=== PATIENT | female | born 1985 | race Caucasian/White ===

== ENCOUNTER 2016-08-16 16:59 | Emergency (ER) | payer OTHER ==
--- NOTE | ~2016-08-16 | CR132 ---
[facility] A Service of [facility] & [facility] RADIOLOGY TEXT RESULTS PATIENT: VICKEY NICOLE LOCATION: CFTX : 89 UNIT #: [id number] AGE: [address]: Olivia Huynh APRN SEX: F ORDER DR: [id number] [facility] [address] [facility]. [place], [place] [address] [id number] E MR#: [id number] Acc #: [id number] NAME: VICKEY NICOLE : 1985 SEX: F STUDY DATE/TIME: 08/16/2016 19:29 UNIT: [facility] ROOM: STUDY DESCRIPTION: CR Forearm 2 View Lt Attending Physician: Olivia Huynh A.P.R.N. Ordering Physician: Olivia Huynh A.P.R.N. Primary Care Physician: No Primary Care Physician MEDICAL IMAGING REPORT This report is preliminary unless electronic signature is present EXAM Left forearm, 2 views. HISTORY Arm pain today. No reported injury. FINDINGS 2 views of the left forearm demonstrate oblique fracture through the mid shaft of the ulna with 3 mm separation of the fracture fragments. No fracture angulation. Mild soft tissue swelling along the posterior margin of the mid forearm. Remainder of the forearm is negative. No additional fracture. Dictated by... Nilesh Serrano M.D. THIS IS AN ELECTRONICALLY VERIFIED REPORT Nilesh Serrano M.D. at 08/19/2016 10:17 AM HERNESTO/shad TD: 08/17/2016 01:12 JOB #: [id number] MEDICAL IMAGING REPORT Page 1 of 1 COPY
--- NOTE | ~2016-08-16 | CR282 ---
[facility] A Service of [facility] & [facility] RADIOLOGY TEXT RESULTS PATIENT: VICKEY NICOLE LOCATION: CFTX : 87 UNIT #: [id number] AGE: [address]: Olivia Huynh APRN SEX: F ORDER DR: [id number] [facility] [address] [facility] [place], [place] [address] [id number] E MR#: [id number] Acc #: [id number] NAME: VICKEY NICOLE : 1985 SEX: F STUDY DATE/TIME: 08/16/2016 19:30 UNIT: [facility] ROOM: STUDY DESCRIPTION: CR Wrist Min 3 View Rt Attending Physician: Olivia Huynh A.P.R.N. Ordering Physician: Olivia Huynh A.P.R.N. Primary Care Physician: No Primary Care Physician MEDICAL IMAGING REPORT This report is preliminary unless electronic signature is present EXAM Right wrist 3 views HISTORY Wrist pain today. No reported injury. FINDINGS Wrist evaluation in multiple projections shows normal mineralization of the bony structures about the wrist and satisfactory articular relationship of the radius and ulna to the proximal carpal row and of the distal carpal segments to the metacarpal bases. There is no indication of fracture or dislocation, and no soft tissue radiopaque foreign body is present. No congenital defects are apparent. IMPRESSION Normal wrist. Dictated by... Nilesh Serrano M.D. THIS IS AN ELECTRONICALLY VERIFIED REPORT Nilesh Serrano M.D. at 08/19/2016 10:17 AM HERNESTO/jeremy TD: 08/17/2016 01:22 JOB #: [id number] MEDICAL IMAGING REPORT Page 1 of 1 COPY
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
== END 2016-08-16 21:18 | disposition home or self-care (01) ==
LOC: CED 16:59 → CFTX 16:59
DX: S52.232A Displaced oblique fracture of shaft of left ulna, initial encounter for closed fracture (principal); S00.03XA Contusion of scalp, initial encounter; Z23 Encounter for immunization; F17.210 Nicotine dependence, cigarettes, uncomplicated; Y04.0XXA Assault by unarmed brawl or fight, initial encounter; Y92.9 Unspecified place or not applicable
CPT/HCPCS: 29125; 70450; 73090; 73110; 84703; 90471; 90715; 99284